=== PATIENT | male | born 1945 | race Caucasian/White ===

== ENCOUNTER → 2018-04-02 | Outpatient (CLI) | payer OTHER | LOC: FIMAGING 12:02 | PROVIDERS: ATTEND Family Medicine | DX: J93.83 Other pneumothorax (principal); Z87.81 Personal history of (healed) traumatic fracture ==

== ENCOUNTER 2018-04-03 10:59 | Emergency (ER) | payer OTHER ==
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
[2018-04-03 12:39] VITALS: BP 122/79
== END 2018-04-03 12:44 | disposition home or self-care (01) ==
DX: S27.0XXD Traumatic pneumothorax, subsequent encounter (principal); F17.200 Nicotine dependence, unspecified, uncomplicated; V18.2XXD Unspecified pedal cyclist injured in noncollision transport accident in nontraffic accident, subsequent encounter

== ENCOUNTER → 2018-06-23 | Outpatient (CLI) | payer OTHER, MEDICAID | LOC: FIMAGING 10:22 | PROVIDERS: ATTEND Family Medicine | DX: M25.521 Pain in right elbow (principal); M25.821 Other specified joint disorders, right elbow ==

== ENCOUNTER → 2019-03-04 | Outpatient (CLI) | payer OTHER | LOC: FIMAGING 10:11 ==